=== PATIENT | female | born 1955 | race Hispanic/Latino ===

== ENCOUNTER 2024-12-12 15:58 | Emergency (ER) | payer MEDICARE, OTHER ==
[~2024-12-12] VITALS: Ht 154.9 cm; Wt 65.8 kg
[~2024-12-12 15:58] MED LIST: CEFDINIR300 MG PO
[2024-12-12] MEDS ORDERED: METHOCARBAMOL500 MG PO (18:56)
[2024-12-12 19:00] VITALS: PULSE 20; RESP 13; TEMP 98.1
[2024-12-12 19:12] VITALS: BP 115/78; PULSE 50; RESP 13; TEMP 98.1; O2SAT 99
== END 2024-12-12 19:05 | disposition home or self-care (01) ==
LOC: ER 16:30
DX: M25.551 Pain in right hip (principal); S76.011A Strain of muscle, fascia and tendon of right hip, initial encounter; Y93.B9 Activity, other involving muscle strengthening exercises; Y92.89 Other specified places as the place of occurrence of the external cause; I10 Essential (primary) hypertension; E78.5 Hyperlipidemia, unspecified
CPT/HCPCS: 99284